=== PATIENT | female | born 1945 | race Caucasian/White ===

== ENCOUNTER → 2016-09-27 | Outpatient (CLI) | payer MEDICARE, BC ==
--- NOTE | 2016-09-22 10:10 | MH ---
cc: SRINIVAS HO M.D. DATE OF ADMISSION 09/27/2016 ADMISSION DIAGNOSIS Chronic open angle glaucoma right eye uncontrolled HISTORY OF PRESENT ILLNESS This 71-year-old white female is coming through [facility] for the purpose of an Argon laser trabeculoplasty of the right eye. She has a history of chronic open angle glaucoma, uncontrolled well on medication alone and has elected to have a argon laser trabeculoplasty of the right eye at this time. PAST MEDICAL HISTORY The patient has multiple medical problems includin. Lupus 2. Hypertension 3. Asthma 4. Irritable bowel syndrome 5. Rheumatoid arthritis 6. Migraines 7. Allergies 8. Chronic open angle glaucoma as mentioned above 9. Nerve damage on the left hand 10. Colitis PAST SURGICAL HISTORY Includes: 1. Right knee surgery 2. Retinal detachment surgery on the right eye 3. Right rotator cuff 4. Left heel spur 5. Hemorrhoids 6. Left elbow 7. Abdominal adhesions and bowel surgery 8. Left rotator cuff 9. Tubal 10. Hysterectomy 11. Bilateral cataract surgery 12. Deviated septum 13. Nasal thrombectomy 14. Thoracic outlet 15. Gallbladder 16. Bilateral carpal tunnel 17. Trigger finger 18. Right shoulder reversion replacement 19. Tummy tuck and liposuction MEDICATIONS Daily medications include: 1. Prevacid 2. Xyzal 3. Arava 4. Cymbalta 5. Dyazide 6. Lomotil 7. Plaquenil 8. Multivitamins 9. Calcium plus D 10. Lipitor 11. Dicyclomine 12. Citracal 13. Tramadol 14. Aleve 15. Entocort 16. Latanoprost eye drops 17. Azopt eye drops 18. Bepreve drops ALLERGIES TALWIN, DEMEROL, CODEINE AND ADHESIVE TAPE. SOCIAL HISTORY Noncontributory FAMILY HISTORY Positive for parents with cataracts, mother with glaucoma and mother with macular degeneration. REVIEW OF SYSTEMS Noncontributory OCULAR EXAM On ocular exam, the patient's visual acuity with correction is 20/40 in the right eye and 20/25 +2 in the left. Visual guardado to confrontation testing are full except there is constriction inferiorly in the right eye. Extraocular muscle exam reveals full versions with orthophoria at distance and near. Pupils are 3 mm in the right eye, 2.5 mm in the left, round and reactive to light without afferent defect. Anterior segment examination reveals a posterior chamber intraocular lens in place. This is in both eyes. Intraocular pressures 17 in the right eye and 15 in the left by applanation tonometry. Dilated fundus exam revealed sharp disks with cup-to-disk ratio 0.6 bilaterally. There is parafoveal cellophane in the macula of each eye. A posterior vitreous detachment is present bilaterally. 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 IMPRESSION 1. Chronic open angle glaucoma not controlled with medication alone, moderate in the right eye and mild in the left. 2. Pseudophakia both eyes. 3. Status post retinal detachment right eye and branch retinal vein occlusion right eye. 4. Status post panretinal photocoagulation right eye. 5. Posterior vitreous detachment both eyes. PLAN The plan is argon laser trabeculoplasty right eye through [facility]. MD SHEILA Jesus/STEWART /1:00 PM /10:08 AM
[~2016-09-27] MED LIST: ALRE0.2S3 BOTH EYES; ANDR1GEL TD; ATOR20TA42 PO; AZOP1SUS EACH EYE; BEPREVE EACH EYE; CITRPOW PO; CYMB60CA PO; DICY10CA13 PO; DYAZ37.57 PO; ESTR0.5T PO; FLUOROMETHOLONE 0.25% OPHT SUSP 5 ML BTL ONE; HYDR200T42 PO; LATA.005%O EACH EYE; LEFL20 PO; LOMO PO; LORTA10 PO; PREV30CA36 PO; PROPARACAINE HCL 0.5% OPHT SOLN 15 ML BTL ONE; PROVENTIL HFA INH; SUCR1TAB PO; SYST0.4D2 EACH EYE; TAB-TAB PO; TRAZ300T2 PO; VERAMIST; XYZA5TAB2 PO
--- NOTE | 2016-09-27 11:23 | MP ---
cc: SRINIVAS HO DATE OF SURGERY: 09/27/2016 PREOPERATIVE DIAGNOSIS Chronic open angle glaucoma, right eye. POSTOPERATIVE DIAGNOSIS Chronic open angle glaucoma, right eye. OPERATION Argon laser trabeculoplasty, right eye. ANESTHESIA Topical. COMPLICATIONS None. INDICATIONS See history and physical previously dictated. PROCEDURE The patient arrived at the [facility]. Blood pressure was 135/77, pulse 89, respirations 16. A drop of Alphagan P was instilled in the right eye and the patient was seated at the Argon laser. A drop of Ophthaine was instilled in the right eye and a single mirror Gonio lens was placed on the anterior surface of the right cornea. Argon laser trabeculoplasty was then carried out. 99 exposures were placed at the junction of the pigmented and nonpigmented trabecular meshwork. The exposure time was 0.1 second, spot size was 50 microns, power was 1,000 milliwatts. The patient tolerated the procedure well. A drop of Alphagan P was instilled in the eye. The patient was given a prescription for topical steroids to be used q.i.d. in the right eye postoperatively, and has an appointment for follow-up on the first postoperative day in my office. The patient was given written postoperative instructions. [facility]. MD SHEILA Jesus/BT /10:33 AM /11:23 AM .4
== END ==
LOC: PHSDC 09:05
PROVIDERS: ATTEND Ophthalmology
DX: H40.1112 Primary open-angle glaucoma, right eye, moderate stage (principal); H43.813 Vitreous degeneration, bilateral

== ENCOUNTER 2016-10-15 14:39 | Emergency (ER) | payer MEDICARE, BC ==
[~2016-10-15] VITALS: Ht 152.4 cm; Wt 65.0 kg
[~2016-10-15 14:39] MED LIST changes: -FLUOROMETHOLONE 0.25% OPHT SUSP 5 ML BTL ONE; -PROPARACAINE HCL 0.5% OPHT SOLN 15 ML BTL ONE
[2016-10-15 14:42] VITALS: BP 189/88; PULSE 101; RESP 14; TEMP 97.9; O2SAT 99
--- NOTE | 2016-10-15 15:01 | PD ---
HPI Chief Complaint: Injury Time Seen by Provider: 15:00 Travel History International Travel<30 days: No Contact w/Intl Traveler<30days: No Traveled to known affect area: No History of Present Illness HPI 71-year-old male presents emergency Department with complaint of pain across her mid right scapula times one week. Followed up with her primary care provider Dr. Soni on Tuesday and was given oxycodone and a steroid injection which has provided no relief of pain. Denies injury. Pain is stabbing in nature. Pain is constant and reproducible with light palpation. Denies rash. Denies history of shingles. Denies fever, vomiting. Denies chest pain, heart palpitations, shortness of breath, abdominal pain. Symptoms are mild in severity. Allergies to adhesives, codeine, Demerol, Talwin. Has no other medical complaints. No other modifying factors or associated signs and symptoms. PFSH Past Medical History Arthritis: Yes (rheumatoid arthritis) Asthma: Yes Heart Rhythm Problems: No Cancer: No Cardiovascular Problems: No High Cholesterol: Yes Chest Pain: No Congestive Heart Failure: No COPD: No Cerebrovascular Accident: No Diabetes: No Endocrine: No GERD: Yes Genitourinary: No Headaches: No Hepatitis: No Hiatal Hernia: Yes (GERD, ULCER DIS.) Hypertension: Yes Immune Disorder: Yes (RA, LUPUS) Musculoskeletal: Yes (NECK/ BACK PAIN, ARTHRITIS, SCIATICA) Neurologic: Yes (HEADACHES/ MIGRANES) Psychiatric: No Reproductive: No Respiratory: Yes (ASTHMA) Migraines: Yes Myocardial Infarction: No Seizures: No Sleep Apnea: No Thyroid Disease: No Ulcer: No ?: Not : 2 Para: 2 Tubal Ligation: Yes Past Surgical History Abdominal Surgery: Yes (LAP. GIOVANNI, LAPAROSCOPIC LYSIS ADHESIONS) AICD: No Appendectomy: No Cardiac Surgery: Yes Cholecystectomy: Yes Ear Surgery: No Endocrine Surgery: No Eye Surgery: Yes (DOUGLAS. CATARACT EXTR., RT. RETINA REP.) Genitourinary Surgery: No Gynecologic Surgery: Yes (TUBAL LIG., HYSTERECTOMY) Hysterectomy: Yes Joint Replacement: No Oral Surgery: No Pacemaker: No Thoracic Surgery: Yes (RIGHT RIB RESECT.) Other Surgery: Yes (HEMORRHOIDECTOMY) Social History Alcohol Use: Yes (occasional, 1 week ago) Tobacco Use: No Substance Use: No Allergies-Medications (Allergen,Severity, Reaction): Coded Allergies: Adhesives (Verified Allergy, Severe, ADHESIVE TAP = BLISTERS, 11/30/12) Codeine (Verified Allergy, Severe, HIVES, 11/30/12) 11/20/12 DENIES ALLERGY Demerol (Verified Adverse Reaction, Severe, N & V, 11/30/12) Talwin (Verified Adverse Reaction, Severe, N&V, 11/30/12) Reported Meds & Prescriptions Reported Meds & Active Scripts Active Acyclovir 800 Mg Tab 800 Mg PO 5 TIMES A DAY 7 Days Reported Hydrocodone/Acetaminophen 10 mg/325 mg 10 Mg/325 Mg Tab 1 Tab PO Q6H PRN Androgel (Testosterone) 1 % Gel 1 % TD DAILY PRN Azopt (Brinzolamide) 1 % Donan 1 Drop EACH EYE BID Sucralfate 1 Gm Tab 1 Gm PO TIDACHS Lipitor (Atorvastatin Calcium) 20 Mg Tab 20 Mg PO HS Trazodone Hcl (Trazodone HCl) 300 Mg Tab 300 Mg PO HS Dicyclomine HCl 10 Mg Cap 10 Mg PO DAILY Lomotil (Diphenoxylate HCl/Atropine) 1 Tab Tab 2 Tab PO Q6HPRN FOR DIARRHEA [Veramist] 1 Spr NA DAILY Systane Gel (Polyethyl Glycol/Propylene Glycol) 1 Ml Barrie 1 Ml EACH EYE PRN Alrex (Loteprednol Etabonate) 0.2 % Donna 1 Drop BOTH EYES DAILY PRN [Bepreve] 2 Drop EACH EYE DAILY Citrucel (Methylcellulose) Pow 1 Tbs PO DAILY Dyazide (Triamterene/HCTZ) 37.5 Mg/25 Mg Cap 37.5 - PO DAILY Estradiol 0.5 Mg Tab 0.5 Mg PO DAILY Arava (Leflunomide) 20 Mg Tab 20 Mg PO DAILY Xyzal (Levocetirizine) 5 Mg Tab 5 Mg PO HS Multivitamin (Multivitamins) 1 Tab Tab 1 Tab PO DAILY Cymbalta (Duloxetine HCl) 60 Mg Cap 60 Mg PO DAILY Xalatan (Latanoprost) 0.005 % Soln 1 Drop EACH EYE HS Proventil Hfa (Albuterol Sulfate) 6.7 Gm Aer 2 Puff INH Q4HPRN Plaquenil (Hydroxychloroquine Sulfate) 200 Mg Tab 200 Mg PO BID Prevacid (Lansoprazole) 30 Mg Capcr 30 Mg PO BID Review of Systems Except as stated in HPI: all other systems reviewed are Neg Physical Exam Narrative GENERAL: Well-nourished, well-developed elderly, female patient, in no acute distress; afebrile, nontoxic-appearing SKIN: Warm and dry. Pain elicited to soft touch to the right mid scapular area ; areas without rash, erythema, edema. HEAD: Atraumatic. Normocephalic. EYES: Pupils equal and round. No scleral icterus. No injection or drainage. ENT: Mucosa pink and moist. Airway patent. NECK: Trachea midline. CARDIOVASCULAR: Regular rate and rhythm. No murmur appreciated. RESPIRATORY: No accessory muscle use. Clear to auscultation. Breath sounds equal bilaterally. GASTROINTESTINAL: Abdomen soft, non-tender, nondistended. Hepatic and splenic margins not palpable. Bowel sounds are active 4 quadrants. MUSCULOSKELETAL: No obvious deformities. No clubbing. No cyanosis. No edema. BACK: No rash. No midline point tenderness on palpation of the cervical or thoracic spine. NEUROLOGICAL: Awake and alert. Oriented 3. No obvious cranial nerve deficits. Motor grossly within normal limits. Normal speech. PSYCHIATRIC: Appropriate mood and affect; insight and judgment normal. Data Data Last Documented VS Vital Signs Date Time Temp Pulse Resp B/P Pulse Ox O2 Delivery O2 Flow Rate FiO2 10/15/16 17:15 75 16 135/75 96 Room Air 10/15/16 14:42 97.9 Orders Spine, Thoracic-Ap/Lat/Sw(3vw) (10/15/16 15:08) Morphine Inj (Morphine Inj) (10/15/16 16:30) Promethazine Inj (Phenergan Inj) (10/15/16 16:30) MDM Medical Decision Making Medical Screen Exam Complete: Yes Emergency Medical Condition: Yes Medical Record Reviewed: Yes Differential Diagnosis Shingles, neuritis, nerve compression Narrative Course 71-year-old female with reproducible pain to light touch to the right scapular area of the skin. There is no rash or change in skin to the area. Patient denies injury. I spoke with Dr. Zuñiga, my attending physician, and he recommended thoracic spine x-ray and if negative to treat for possible shingles. 1626: Dr. Zuñiga ordered Morphine IM for pain. 1632: Thoracic spine x-ray concludes degenerative changes with no acute compression. Patient will be treated with acyclovir for possible shingles. Acyclovir prescribed for home. Instructed patient to follow up with primary care provider. Patient verbalizes understanding and agreement with treatment plan. Patient is medically cleared and stable for discharge. Discussed reasons to return to the emergency department. Patient agrees with treatment plan. The patients vital signs are stable and the patient is stable for outpatient follow-up and treatment. Patient discharged home, stable and in no acute distress. Diagnosis Primary Impression: Pain of right scapula Additional Impression: Pain of skin Referrals: Primary Care Physician Patient Instructions: General Instructions, Shingles (ED) Additional Instructions: Continue pain medications as prescribed Take medications as prescribed Cold, wet compresses to the area to help relieve itching and pain as needed Cool Bath to help relieve itching and pain as needed Follow-up with a primary care provider Return to the emergency department immediately with worsening of symptoms Med/Other Pt SpecificInfo: Prescription(s) given Scripts Acyclovir 800 Mg [id number] Mg PO 5 TIMES A DAY 7 Days Ref 0 Prov:Claudia Jacobo 10/15/16 Disposition: 01 DISCHARGE HOME Condition: Stable Claudia Jacobo Oct 15, 2016 15:00
[2016-10-15] MEDS ORDERED: ACYC800T PO (15:53)
--- NOTE | 2016-10-15 16:26 | RADRPT ---
EXAM DATE/TIME: 10/15/2016 15:41 [facility] COMPARISON: No previous studies available for comparison. INDICATIONS : Back pain. MEDICAL HISTORY : None. SURGICAL HISTORY : Total right shoulder reverse joint replacement. ENCOUNTER: Initial ACUITY: 1 week PAIN SCORE: 9/10 LOCATION: Right Shoulder FINDINGS: Mild degenerative changes are evident without acute compression. Total shoulder arthroplasty present on the right. CONCLUSION: Degenerative changes without acute compression. Jaron Pope MD FACR on October 15, 2016 at 16:23 Board Certified Radiologist. This report was verified electronically.
[2016-10-15] MEDS ORDERED: PROMETHAZINE INJ 25 MG/ML VIAL IM ONE (16:30)
[2016-10-15] MEDS ORDERED: MORPHINE SULFATE 4 MG/ML INJ IM ONE (16:30)
[2016-10-15 17:15] VITALS: BP 135/75; PULSE 75; RESP 16; O2SAT 96
== END 2016-10-15 17:19 | disposition home or self-care (01) ==
LOC: NEPD 14:39
DX: M25.511 Pain in right shoulder (principal); M06.9 Rheumatoid arthritis, unspecified; J45.909 Unspecified asthma, uncomplicated; E78.00 Pure hypercholesterolemia, unspecified; K21.9 Gastro-esophageal reflux disease without esophagitis; I10 Essential (primary) hypertension; M32.9 Systemic lupus erythematosus, unspecified
CPT/HCPCS: 72072; 96372; 99284; J2270; J2550

== ENCOUNTER → 2016-12-07 | Day surgery (SDC) | payer MEDICARE, BC ==
[~2016-12-07] VITALS: Ht 152.4 cm; Wt 61.0 kg
[~2016-12-07] MED LIST changes: +ACETAMINOPHEN/HYDROcodone 325 MG/5 MG TAB ONE; +ACYC800T PO; -ALRE0.2S3 BOTH EYES; +ALRE0.2S3 EACH EYE; +AMPICILLIN/SULBAC 3 GM/NS 100 ML IV SCH; -ANDR1GEL TD; +ANDR1GEL TOPICAL; +AZOP1SUS RIGHT EYE; +BACITRACIN TOP OINT 15 GM TUBE ONE; +BACTOIN EACH NARE; +BUDE3CAP PO; +CHLORHEXIDINE GLUCONATE 2 % 1 PACK (2 CLOTHS) TOPICAL PRN; +CITR500T PO; +DICY20TA10 PO; +DYAZ37.5 PO; -DYAZ37.57 PO; +FAMOTIDINE 20 MG/2 ML VIAL ONE; +HYDR-3516 PO; +INSULIN HUMAN REGULAR 1,000 UNITS/10 ML VIAL SQ PRN; +LACTATED RINGER'S 1000 ML IV PRN; +LANS30CA PO; -LATA.005%O EACH EYE; +LATA0.002 EACH EYE; +LEVO1TAB50 PO; +LIDOCAINE 0.5%/EPINEPHrine 1:200,000 SOLN 50 ML VIAL ONE; +LIPI20TA PO; +LOMO2.5T PO; +METOPROLOL TARTRATE 25 MG TAB PO PRN; +MIDAZOLAM HCL 2 MG/2 ML VIAL ONE; +MULTTAB67 PO; +ONDANSETRON HCL 4 MG/2 ML VIAL IV PUSH ONE; +OXYMETAZOLINE HCL 0.05% 15 ML NASAL SPRAY ONE; +PLAQ200T PO; +POVIDONE IODINE 5% (ANTISEPSIS KIT) 4 APPLICATIONS EACH NARE PRN; -PREV30CA36 PO; +PROPOFOL 200 MG/20 ML AMP IV ONE; +SODIUM CHLORID 0.9% 500 ML IV PRN; -SYST0.4D2 EACH EYE; +SYST0.4D2 TOPICAL; -TAB-TAB PO; +TOFA5TAB PO; +TRAM50TA PO; +VENTAER INH; -XYZA5TAB2 PO
[2016-12-07 08:35] VITALS: PULSE 88
[2016-12-07 09:00] VITALS: PULSE 83; TEMP 98.2
[2016-12-07 10:00] VITALS: BP 168/81; PULSE 88; RESP 16; O2SAT 95
--- NOTE | 2016-12-07 11:38 | EKG ---
Date Performed: 12/07/2016 Time Performed: 07:04:21 PTAGE: 71 years EKG: Sinus rhythm NORMAL ECG Compared to prior tracing no significant change PREVIOUS TRACING : 03/29/2011 08.48 DOCTOR: Nasir Vera Interpretating Date/Time 12/07/2016 11:36:28
--- NOTE | 2016-12-10 11:17 | MP ---
cc: LORY EDUARDO M.D. DATE OF SURGERY 12/07/[address] Lory eduardo PREOPERATIVE DIAGNOSIS 1. Nasal airway obstruction 2. Nasal septal deviation. 3. Hypertrophy of inferior turbinates. POSTOPERATIVE DIAGNOSIS 1. Nasal airway obstruction 2. Nasal septal deviation. 3. Hypertrophy of inferior turbinates. OPERATION PERFORMED 1. Open repair nasal septal fracture. 2. Bilateral submucosal resection of inferior turbinates. INDICATIONS The indications are documented in the history and physical. DESCRIPTION OF OPERATION The patient was taken to OR #2 and placed in the supine position. Following induction of general anesthesia and intubation, the nose was packed bilaterally with cotton pledgets saturated in 0.05% Oxymetazoline. The nasal septum and inferior turbinates were injected with a total of 8 mL of 1% Xylocaine with epinephrine 1:100,000. She was then prepped and draped for surgery. The packing was removed and a hemitransfixion incision was made in the left nasal vestibule. Through this incision, the mucosa of the septum was elevated bilaterally as far as the junction of the bony cartilaginous septum. There was a small area of cartilage which was absent due to a previous attempt at septoplasty surgery around 30 years ago. The septal cartilage revealed evidence of old fracture with numerous fractured segments causing bilateral deviation of the cartilaginous septum obstructing both sides of the airway. An accumulative area of 2 x 2 cm was removed preserving 1.5 cm dorsal and caudal cartilaginous struts. When this was completed, the mucosa was elevated from the bony septum and the maxillary crest and these were removed using the John Turner forceps and the bony septum and a 6-mm [place] chisel on the maxillary crest. The incision was then closed with a running suture of 4-0 chromic and the mucosal layers of the septum were approximated to each other with a quilting stitch of 4-0 plain gut. The inferior turbinates were then fractured out medially and stab incisions were opened along their inferior surfaces and through these incisions the submucosal soft tissue was reduced using a curette and preserving the conchal bone. The incisions were cauterized using suction Bovie at 35 reis and the remnants of the inferior turbinates were then we lateralized to the lateral nasal wall. The nose was packed with 5.5 cm rapid rhino packs and each one was inflated with 5 mL of air and the procedure. The patient was reversed from anesthesia and taken to recovery in good condition. There were no complications. BLOOD LOSS 80 mL MD SONY Marquez/STEWART /7:17 AM /11:04 AM
== END | disposition home or self-care (01) ==
LOC: PHSDC 06:06
PROVIDERS: ATTEND Otolaryngology
DX: J34.2 Deviated nasal septum (principal); J34.3 Hypertrophy of nasal turbinates; I10 Essential (primary) hypertension; E78.00 Pure hypercholesterolemia, unspecified; J45.909 Unspecified asthma, uncomplicated; K21.9 Gastro-esophageal reflux disease without esophagitis; Z87.11 Personal history of peptic ulcer disease
CPT/HCPCS: 00160; 30140; 30520; 93005; J0295; J2250; J2405; J3010; J7120